=== PATIENT | female | born 1990 | race American Indian/Alaskan Native ===

== ENCOUNTER 2019-02-10 22:41 | Emergency (ER) | payer MEDICAID ==
[2019-02-10 22:56] VITALS: BP 139/85
--- NOTE | 2019-02-11 00:58 | Emergency Department Report ---
ED ENT HPI - General Chief complaint: Earache Stated complaint: LEFT EAR FACE PAIN Time Seen by Provider: 02/11/19 00:48 Source: patient Mode of arrival: Ambulatory Limitations: No Limitations - History of Present Illness Initial comments: 28-year-old old -Cong[place] female comes to the emergency room for left ear and face pain 1 week. Patient reports that the pain has been intermittent. She's been taking ibuprofen and Tylenol with not much resolution of pain. Patient denies any fever or chills. Patient reports a little trouble hearing from the left ear. He reports no past medical history currently takes no medications on a daily basis and has no known drug allergies. MD complaint: ear pain Onset/Timin -: week(s) Location: L ear Severity scale (0 -10): 7 Quality: aching, sharp Consistency: intermittent Improves with: none Worsens with: none - Related Data Previous Rx's Medication Instructions Recorded Last Taken Type Nitrofurantoin [place]/M-Cryst 100 mg PO Q12HR #14 capsule 07/19/16 Unknown Rx [Macrobid CAP] Acetaminophen/Codeine [Tylenol 1 tab PO Q6H PRN #12 tab 02/11/19 Unknown Rx /Codeine # 3 tab] Amoxicillin [Amoxicillin TAB] 875 mg PO BID #20 tablet 02/11/19 Unknown Rx Ibuprofen [Motrin 800 MG tab] 800 mg PO Q8HR PRN #30 tablet 02/11/19 Unknown Rx Allergies Allergy/AdvReac Type Severity Reaction Status Date / Time No Known Allergies Allergy Unverified 07/18/16 16:26 ED Dental HPI - General Chief complaint: Earache Stated complaint: LEFT EAR FACE PAIN Time Seen by Provider: 02/11/19 00:48 Source: patient Mode of arrival: Ambulatory Limitations: No Limitations - Related Data Previous Rx's Medication Instructions Recorded Last Taken Type Nitrofurantoin [place]/M-Cryst 100 mg PO Q12HR #14 capsule 07/19/16 Unknown Rx [Macrobid CAP] Acetaminophen/Codeine [Tylenol 1 tab PO Q6H PRN #12 tab 02/11/19 Unknown Rx /Codeine # 3 tab] Amoxicillin [Amoxicillin TAB] 875 mg PO BID #20 tablet 02/11/19 Unknown Rx Ibuprofen [Motrin 800 MG tab] 800 mg PO Q8HR PRN #30 tablet 06/01/19 Unknown Rx Allergies Allergy/AdvReac Type Severity Reaction Status Date / Time No Known Allergies Allergy Unverified 07/18/16 16:26 ED Review of Systems ROS: Stated complaint: LEFT EAR FACE PAIN Other details as noted in HPI ED Past Medical Hx - Surgical History Additional Surgical History: C section x2 - Social History Smoking Status: Never Smoker Substance Use Type: None - Medications Home Medications: Home Medications Medication Instructions Recorded Confirmed Last Taken Type Nitrofurantoin [place]/M-Cryst 100 mg PO Q12HR #14 capsule 07/19/16 Unknown Rx [Macrobid CAP] Acetaminophen/Codeine [Tylenol 1 tab PO Q6H PRN #12 tab 02/11/19 Unknown Rx /Codeine # 3 tab] Amoxicillin [Amoxicillin TAB] 875 mg PO BID #20 tablet 02/11/19 Unknown Rx Ibuprofen [Motrin 800 MG tab] 800 mg PO Q8HR PRN #30 tablet 02/11/19 Unknown Rx ED Physical Exam - General Limitations: No Limitations ED Course Vital Signs 02/10/19 22:54 Temperature 98.5 F Pulse Rate 110 H Respiratory 16 Rate Blood Pressure 139/85 O2 Sat by Pulse 99 Oximetry Critical care attestation.: If time is entered above; I have spent that time in minutes in the direct care of this critically ill patient, excluding procedure time. ED Disposition Clinical Impression: Toothache Otitis media Qualifiers: Otitis media type: unspecified Chronicity: acute Qualified Code(s): H66.90 - Otitis media, unspecified, unspecified ear Disposition: DC-01 TO HOME OR SELFCARE Is pt being admited?: No Does the pt Need Aspirin: No Condition: Stable Instructions: Otitis Media (ED), Toothache (ED) Additional Instructions: Please take antibiotics as prescribed pain medication as needed follow-up with the dentist and her primary care provider. Prescriptions: Amoxicillin [Amoxicillin TAB] 875 mg PO BID #20 tablet Ibuprofen [Motrin 800 MG tab] 800 mg PO Q8HR PRN #30 tablet PRN Reason: Pain , Severe (7-10) Acetaminophen/Codeine [Tylenol /Codeine # 3 tab] 1 tab PO Q6H PRN #12 tab PRN Reason: Pain , Severe (7-10) Referrals: ODIN CORRALES MD [Primary Care Provider] - 3-5 Days [facility] [Outside] - 3-5 Days [facility] [Outside] - 3-5 Days [facility] [Outside] - 3-5 Days Forms: Work/School Release Form(ED)
== END 2019-02-11 01:47 | disposition home or self-care (01) ==
LOC: ED 22:41
DX: H66.92 Otitis media, unspecified, left ear (principal); R51 Headache; K08.89 Other specified disorders of teeth and supporting structures

== ENCOUNTER 2019-04-06 00:40 | Emergency (ER) | payer MEDICAID ==
[2019-04-06 01:07] LABS: Basophils % (Auto) 0.3 % (0.0-1.8); Eosinophils # (Auto) 0.1 K/mm3 (0.0-0.4); Eosinophils % (Auto) 1.8 % (0.0-4.3); Hematocrit 37.5 % (30.3-42.9); Hemoglobin 12.2 gm/dl (10.1-14.3); Lymphocytes # (Auto) 1.8 K/mm3 (1.2-5.4); Lymphocytes % (Auto) 23.8 % (13.4-35.0); Mean Corpuscular HGB Conc 33 % (30-34); Mean Corpuscular Volume 79 fl (79-97); Monocytes # (Auto) 0.5 K/mm3 (0.0-0.8); Monocytes % (Auto) 7.1 % (0.0-7.3); Platelet Count 256 K/mm3 (140-440); Red Blood Count 4.73 M/mm3 (3.65-5.03); Red Cell Distribution Width 13.3 % (13.2-15.2)
[2019-04-06 01:23] LABS: Alanine Aminotransferase 15 units/L (7-56); Albumin 3.7 g/dL (3.9-5); BUN/Creatinine Ratio 13; Blood Urea Nitrogen 10 mg/dL (7-17); Calcium 9.2 mg/dL (8.4-10.2); Hemolysis Index 22
[2019-04-06 01:51] LABS: Bilirubin,Urine NEG (Negative); Blood,Urine NEG (Negative); Color,Urine Yellow (Yellow); Mucus,Urine FEW /HPF; Protein,Urine <15 mg/dL mg/dL (Negative)
[2019-04-06] MEDS ORDERED: PEPCID IV ONE (02:17)
[2019-04-06] MEDS ORDERED: NACL 0.9% 1000 ML 1,000 ML IV ONE (02:18)
[2019-04-06] MEDS ORDERED: XYLOCAINE TOPICAL 4% TP ONE (02:18)
[2019-04-06] MEDS ORDERED: REGLAN IV ONE (02:18)
[2019-04-06] MEDS ORDERED: CARAFATE PO ONE (02:18)
--- NOTE | 2019-04-06 02:20 | Emergency Department Report ---
ED General Adult HPI - General Chief complaint: Abdominal Pain Stated complaint: HEADACHE/LOWER BACK AND ABDOMINAL PAIN Time Seen by Provider: 04/06/19 01:29 Source: patient, RN notes reviewed, old records reviewed Mode of arrival: Ambulatory Limitations: No Limitations - History of Present Illness Initial comments: This is a pleasant 28-year-old female. Patient is not known to this provider previously. She does not have a local primary care doctor. She reports no chronic medical conditions. Surgical history includes 2, the last of which was in 2012. Patient presents with 2 main complaints. Her first complaint is headache. The headache is frontal and bitemporal. The headache is intermittent. The headache is throbbing. It does not radiate anywhere. The headache is not sudden or thunderclap in nature. The headache is not maximal in intensity at the onset. The headache is not the most intense headache of her life. There is no loss of vision, no claudication in the jaw, no extremity weakness or numbness, no ataxia, no fevers. Patient reports that she is looking at a computer screen all day at work, and she spends a lot of time on her side with phone. She also reports that she hasn't had her vision checked in a few years. There is no dental pain. Next complaint is epigastric abdominal pain. The pain is throbbing. It increases with palpation. It decreases with rest. It does not radiate anywhere. Both the headache and abdominal pain were improved with intranasal lidocaine, Carafate, and Pepcid. The patient denies lower abdominal pain at this time. She denies back pain to this provider. She denies chest pain and shortness of breath. After the aforementioned therapies, the patient was smiling in her room, laughing with her friend or significant other, and stated that she was ready to go. 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 -: Gradual Location: head, abdomen Radiation: non-radiation Quality: aching Consistency: other Improves with: other Worsens with: other - Related Data Previous Rx's Medication Instructions Recorded Last Taken Type Nitrofurantoin [place]/M-Cryst 100 mg PO Q12HR #14 capsule 07/19/16 Unknown Rx [Macrobid CAP] Acetaminophen/Codeine [Tylenol 1 tab PO Q6H PRN #12 tab 02/11/19 Unknown Rx /Codeine # 3 tab] Amoxicillin [Amoxicillin TAB] 875 mg PO BID #20 tablet 02/11/19 Unknown Rx Ibuprofen [Motrin 800 MG tab] 800 mg PO Q8HR PRN #30 tablet 02/11/19 Unknown Rx Acetaminophen [Non-Aspirin Extra 500 mg PO Q6HR PRN #30 tablet 04/06/19 Unknown Rx Strength] Famotidine [Pepcid] 20 mg PO BID #30 tablet 04/06/19 Unknown Rx Metoclopramide [Reglan] 10 mg PO QID PRN #30 tablet 04/06/19 Unknown Rx Allergies Allergy/AdvReac Type Severity Reaction Status Date / Time No Known Allergies Allergy Unverified 07/18/16 16:26 ED Review of Systems ROS: Stated complaint: HEADACHE/LOWER BACK AND ABDOMINAL PAIN Other details as noted in HPI Constitutional: denies: fever Eyes: denies: eye discharge ENT: denies: epistaxis Respiratory: denies: cough Cardiovascular: denies: chest pain Genitourinary: denies: dysuria Musculoskeletal: denies: back pain Skin: denies: lesions Neurological: headache. denies: weakness, numbness, paresthesias, confusion, abnormal gait, vertigo ED Past Medical Hx - Past Medical History Previous Medical History?: No - Surgical History Past Surgical History?: Yes Additional Surgical History: C section x2 - Social History Smoking Status: Never Smoker - Medications Home Medications: Home Medications Medication Instructions Recorded Confirmed Last Taken Type Nitrofurantoin [place]/M-Cryst 100 mg PO Q12HR #14 capsule 07/19/16 Unknown Rx [Macrobid CAP] Acetaminophen/Codeine [Tylenol 1 tab PO Q6H PRN #12 tab 02/11/19 Unknown Rx /Codeine # 3 tab] Amoxicillin [Amoxicillin TAB] 875 mg PO BID #20 tablet 02/11/19 Unknown Rx Ibuprofen [Motrin 800 MG tab] 800 mg PO Q8HR PRN #30 tablet 02/11/19 Unknown Rx Acetaminophen [Non-Aspirin Extra 500 mg PO Q6HR PRN #30 tablet 04/06/19 Unknown Rx Strength] Famotidine [Pepcid] 20 mg PO BID #30 tablet 04/06/19 Unknown Rx Metoclopramide [Reglan] 10 mg PO QID PRN #30 tablet 04/06/19 Unknown Rx ED Physical Exam - General Limitations: No Limitations General appearance: alert, in no apparent distress - Head Head exam: Present: atraumatic, normocephalic - Eye Eye exam: Present: normal appearance, PERRL, EOMI, other (visual acuity intact to finger counting, color perception, reading at a close distance). Absent: nystagmus - ENT ENT exam: Present: normal exam, normal orophraynx, mucous membranes moist, normal external ear exam - Neck Neck exam: Present: normal inspection, full ROM. Absent: tenderness, meningi smus - Respiratory Respiratory exam: Present: normal lung sounds bilaterally. Absent: respiratory distress - Cardiovascular Cardiovascular Exam: Present: regular rate, normal rhythm, normal heart sounds. Absent: bradycardia, tachycardia, irregular rhythm, systolic murmur, diastolic murmur, rubs, gallop - GI/Abdominal GI/Abdominal exam: Present: soft, tenderness (there is minimal epigastric tenderness to deep palpation. There is no right upper quadrant tenderness. There is negative Pichardo sign. There is no right lower quadrant tenderness. There is a negative Rovsing sign.). Absent: distended, guarding, rebound, rigid, pulsatile mass - Extremities Exam Extremities exam: Present: normal inspection, full ROM, other (2+ pulses noted in the bilateral upper, lower extremities. Compartments soft. No long bony tenderness. The pelvis is stable.). Absent: pedal edema, joint swelling, calf tenderness - Back Exam Back exam: Present: normal inspection, full ROM. Absent: tenderness, CVA tender ness (R), CVA tenderness (L), paraspinal tenderness, vertebral tenderness - Neurological Exam Neurological exam: Present: alert, oriented X3, normal gait, other (Extraocular movements intact. Tongue midline. No facial droop. Facial sensation intact to light touch in the V1, V2, V3 distribution bilaterally. 5 and 5 strength in 4 extremities.. Sensation is intact to light touch in 4 extremities.). Absent: motor sensory deficit - Psychiatric Psychiatric exam: Present: normal affect, normal mood - Skin Skin exam: Present: warm, dry, intact, normal color. Absent: rash ED Course Vital Signs 04/06/19 04/06/19 04/06/19 00:41 01:49 03:25 Temperature 98.7 F 97.5 F L Pulse Rate 88 78 Respiratory 18 18 18 Rate Blood Pressure 125/79 Blood Pressure 156/96 [Right] O2 Sat by Pulse 100 100 98 Oximetry ED Medical Decision Making - Lab Data Result diagrams: 04/06/19 00:46 04/06/19 00:46 Vital Signs 04/06/19 04/06/19 00:41 01:49 Temperature 98.7 F Pulse Rate 88 Respiratory 18 18 Rate Blood Pressure 125/79 O2 Sat by Pulse 100 100 Oximetry Lab Results 04/06/19 04/06/19 04/06/19 Range/Units 00:46 00:46 02:13 WBC 7.7 (4.5-11.0) K/mm3 RBC 4.73 (3.65-5.03) M/mm3 Hgb 12.2 (10.1-14.3) gm/dl Hct 37.5 (30.3-42.9) % MCV 79 (79-97) fl MCH 26 L (28-32) pg MCHC 33 (30-34) % RDW 13.3 (13.2-15.2) % Plt Count 256 (140-440) K/mm3 Lymph % (Auto) 23.8 (13.4-35.0) % [place] % (Auto) 7.1 (0.0-7.3) % Eos % (Auto) 1.8 (0.0-4.3) % Baso % (Auto) 0.3 (0.0-1.8) % Lymph # 1.8 (1.2-5.4) K/mm3 [place] # 0.5 (0.0-0.8) K/mm3 Eos # 0.1 (0.0-0.4) K/mm3 Baso # 0.0 (0.0-0.1) K/mm3 Seg Neutrophils % 67.0 (40.0-70.0) % Seg Neutrophils # 5.1 (1.8-7.7) K/mm3 Sodium 139 (137-145) mmol/L Potassium 4.2 (3.6-5.0) mmol/L Chloride 103.2 (98-107) mmol/L Carbon Dioxide 28 (22-30) mmol/L Anion Gap 12 mmol/L BUN 10 (7-17) mg/dL Creatinine 0.8 (0.7-1.2) mg/dL Estimated GFR > 60 ml/min BUN/Creatinine Ratio 13 % Glucose 88 (65-100) mg/dL Calcium 9.2 (8.4-10.2) mg/dL Total Bilirubin 0.20 (0.1-1.2) mg/dL AST 15 (5-40) units/L ALT 15 (7-56) units/L Alkaline Phosphatase 107 (35-129) units/L Total Protein 7.6 (6.3-8.2) g/dL Albumin 3.7 L (3.9-5) g/dL Albumin/Globulin Ratio 0.9 % Lipase 16 (13-60) units/L HCG, Quant < 2 (0-4) mIU/mL Urine Color (Yellow) Urine Turbidity (Clear) Urine pH (5.0-7.0) Ur Specific [place] (1.003-1.030) Urine Protein (Negative) mg/dL Urine Glucose (UA) (Negative) mg/dL Urine Ketones (Negative) mg/dL Urine Blood (Negative) Urine Nitrite (Negative) Urine Bilirubin (Negative) Urine Urobilinogen (<2.0) mg/dL Ur Leukocyte Esterase (Negative) Urine WBC (Auto) (0.0-6.0) /HPF Urine RBC (Auto) (0.0-6.0) /HPF U Epithel Cells (Auto) (0-13.0) /HPF Urine Mucus /HPF 04/06/ Range/Units Unknown WBC (4.5-11.0) K/mm3 RBC (3.65-5.03) M/mm3 Hgb (10.1-14.3) gm/dl Hct (30.3-42.9) % MCV (79-97) fl MCH (28-32) pg MCHC (30-34) % RDW (13.2-15.2) % Plt Count (140-440) K/mm3 Lymph % (Auto) (13.4-35.0) % [place] % (Auto) (0.0-7.3) % Eos % (Auto) (0.0-4.3) % Baso % (Auto) (0.0-1.8) % Lymph # (1.2-5.4) K/mm3 [place] # (0.0-0.8) K/mm3 Eos # (0.0-0.4) K/mm3 Baso # (0.0-0.1) K/mm3 Seg Neutrophils % (40.0-70.0) % Seg Neutrophils # (1.8-7.7) K/mm3 Sodium (137-145) mmol/L Potassium (3.6-5.0) mmol/L Chloride (98-107) mmol/L Carbon Dioxide (22-30) mmol/L Anion Gap mmol/L BUN (7-17) mg/dL Creatinine (0.7-1.2) mg/dL Estimated GFR ml/min BUN/Creatinine Ratio % Glucose (65-100) mg/dL Calcium (8.4-10.2) mg/dL Total Bilirubin (0.1-1.2) mg/dL AST (5-40) units/L ALT (7-56) units/L Alkaline Phosphatase (35-129) units/L Total Protein (6.3-8.2) g/dL Albumin (3.9-5) g/dL Albumin/Globulin Ratio % Lipase (13-60) units/L HCG, Quant (0-4) mIU/mL Urine Color Yellow (Yellow) Urine Turbidity Clear (Clear) Urine pH 6.0 (5.0-7.0) Ur Specific [place] 1.019 (1.003-1.030) Urine Protein <15 mg/dl (Negative) mg/dL Urine Glucose (UA) Neg (Negative) mg/dL Urine Ketones Neg (Negative) mg/dL Urine Blood Neg (Negative) Urine Nitrite Neg (Negative) Urine Bilirubin Neg (Negative) Urine Urobilinogen 2.0 (<2.0) mg/dL Ur Leukocyte Esterase Neg (Negative) Urine WBC (Auto) 1.0 (0.0-6.0) /HPF Urine RBC (Auto) 1.0 (0.0-6.0) /HPF U Epithel Cells (Auto) 1.0 (0-13.0) /HPF Urine Mucus Few /HPF - EKG Data -: EKG Interpreted by [place] EKG shows normal: sinus rhythm Rate: normal - EKG Data When compared to previous EKG there are: previous EKG unavailable EKG shows sinus bradycardia, 59 bpm, left axis deviation, low voltage in the anteroseptal leads, poor R-wave progression, T-wave inversion in lead 3, the EKG is abnormal, the EKG is not consistent with ST elevation myocardial infarction. 04/06/19 03:22 Differential diagnosis, including but not limited to: - Medical Decision Making Differential diagnosis, including but not limited to: Migraine headache, tension headache, cluster headache, headache secondary to excessive cell phone, computer use, GERD, gastritis, hiatal hernia Assessment and plan: 28-year-old female with 2 complaints Headache clinically appears to be benign headache and today. Patient is afebrile with reassuring vital signs and feels improved. Does not offer any red flag historical aspects to suggest infectious etiology, or intracranial hemorrhage or mass. She has a GCS of 15, and walks with a steady gait. She has an NIH score of 0. Does not require advanced neuro imaging at this time. Abdominal pain is benign, not significantly tender, pain markedly improved. Patient smiling and laughing in her room, does not appear to be in any acute distress. She can follow up with an outpatient primary care doctor. She is counseled to minimize computer utilization and cell phone utilization, she is counseled to have her vision checked as an outpatient. We discussed diet and lifestyle modifications. Critical care attestation.: If time is entered above; I have spent that time in minutes in the direct care of this critically ill patient, excluding procedure time. ED Disposition Clinical Impression: Frontal headache, Epigastric abdominal pain Disposition: DC-01 TO HOME OR SELFCARE Is pt being admited?: No Does the pt Need Aspirin: No Condition: Stable Instructions: Abdominal Pain (ED) Additional Instructions: Avoid consumption of Motrin, ibuprofen, Naprosyn, Aleve, heavy, spicy foods. Consume fruits, fiber, vegetables, lean protein. Consume 4-6 cups of water per day. Follow-up with a primary care doctor within the next month. EKG today demonstrated nonspecific abnormalities. This should be followed up by a primary care doctor within the recommended timeframe. Take the pain medica tion/headache medication as needed/directed. Return to the emergency room right away with new, worsened or different symptoms not present on the initial emergency room evaluation. Prescriptions: Acetaminophen [Non-Aspirin Extra Strength] 500 mg PO Q6HR PRN #30 tablet PRN Reason: Pain , Severe (7-10) Famotidine [Pepcid] 20 mg PO BID #30 tablet Metoclopramide [Reglan] 10 mg PO QID PRN #30 tablet PRN Reason: Headache Referrals: ODIN CORRALES MD [Primary Care Provider] - 3-5 Days
[2019-04-06 03:25] VITALS: BP 156/96
== END 2019-04-06 03:47 | disposition home or self-care (01) ==
LOC: ED 00:40
DX: R51 Headache (principal); R10.13 Epigastric pain; Z79.899 Other long term (current) drug therapy
CPT/HCPCS: 36415; 80053; 81001; 83690; 84702; 85025; 93005; 93010; 96374; 96375; 99284; J2765; J7030

== ENCOUNTER 2019-09-22 06:53 | Emergency (ER) | payer MEDICAID ==
[2019-09-22] MEDS ORDERED: IBUPROFEN 800 MG TAB PO ONE (07:39)
--- NOTE | 2019-09-22 07:42 | Emergency Department Report ---
<BARBARA MCCORMICK RADHA - Last Filed: 09/22/19 09:01> ED ENT HPI - General Chief complaint: Sore Throat Stated complaint: HEADACHE SORE THROAT DIZZY Time Seen by Provider: 09/22/19 07:28 Source: patient Mode of arrival: Ambulatory Limitations: No Limitations - History of Present Illness Initial comments: This is a 28-year-old -[place] female who presents to the emergency room with sore throat for 1 day. Patient also reports associated symptoms of chills and headache. She reports discomfort with swallowing and states it feels like knives going down her throat. She denies cough, rhinorrhea, myalgia, nausea, vomiting, or weakness. MD complaint: sore throat Onset/Timin -: days(s) Location: throat Severity: severe Severity scale (0 -10): 10 Quality: aching Consistency: constant Improves with: none Worsens with: swallowing, eating Associated Symptoms: fever, pain with swallowing, sore throat. denies: cough, gum swelling, tinnitus, hearing loss, discharge from ear, rhinorrhea - Related Data Previous Rx's Medication Instructions Recorded Last Taken Type Nitrofurantoin [place]/M-Cryst 100 mg PO Q12HR #14 capsule 07/19/16 Unknown Rx [Macrobid CAP] Acetaminophen/Codeine [Tylenol 1 tab PO Q6H PRN #12 tab 02/11/19 Unknown Rx /Codeine # 3 tab] Amoxicillin [Amoxicillin TAB] 875 mg PO BID #20 tablet 02/11/19 Unknown Rx Acetaminophen [Non-Aspirin Extra 500 mg PO Q6HR PRN #30 tablet 04/06/19 Unknown Rx Strength] Famotidine [Pepcid] 20 mg PO BID #30 tablet 04/06/19 Unknown Rx Metoclopramide [Reglan] 10 mg PO QID PRN #30 tablet 04/06/19 Unknown Rx Ibuprofen [Motrin 800 MG tab] 800 mg PO Q8HR PRN #30 tablet 09/22/19 Unknown Rx Prednisone [predniSONE 5 mg (6-Day 5 mg PO .TAPER #1 tab.ds.pk 09/22/19 Unknown Rx Pack, 21 Tabs)] Allergies Allergy/AdvReac Type Severity Reaction Status Date / Time No Known Allergies Allergy Unverified 07/18/16 16:26 ED Dental HPI - General Chief complaint: Sore Throat Stated complaint: HEADACHE SORE THROAT DIZZY Time Seen by Provider: 09/22/19 07:28 Source: patient Mode of arrival: Ambulatory Limitations: No Limitations - Related Data Previous Rx's Medication Instructions Recorded Last Taken Type Nitrofurantoin [place]/M-Cryst 100 mg PO Q12HR #14 capsule 07/19/16 Unknown Rx [Macrobid CAP] Acetaminophen/Codeine [Tylenol 1 tab PO Q6H PRN #12 tab 02/11/19 Unknown Rx /Codeine # 3 tab] Amoxicillin [Amoxicillin TAB] 875 mg PO BID #20 tablet 02/11/19 Unknown Rx Acetaminophen [Non-Aspirin Extra 500 mg PO Q6HR PRN #30 tablet 04/06/19 Unknown Rx Strength] Famotidine [Pepcid] 20 mg PO BID #30 tablet 04/06/19 Unknown Rx Metoclopramide [Reglan] 10 mg PO QID PRN #30 tablet 04/06/19 Unknown Rx Ibuprofen [Motrin 800 MG tab] 800 mg PO Q8HR PRN #30 tablet 09/22/19 Unknown Rx Prednisone [predniSONE 5 mg (6-Day 5 mg PO .TAPER #1 tab.ds.pk 09/22/19 Unknown Rx Pack, 21 Tabs)] Allergies Allergy/AdvReac Type Severity Reaction Status Date / Time No Known Allergies Allergy Unverified 07/18/16 16:26 ED Review of Systems Constitutional: denies: chills, fever ENT: throat pain. denies: ear pain Respiratory: denies: cough, shortness of breath, wheezing Cardiovascular: denies: chest pain, palpitations Gastrointestinal: denies: abdominal pain, nausea, diarrhea Musculoskeletal: denies: back pain, joint swelling, arthralgia Skin: denies: rash, lesions Neurological: denies: headache, weakness, paresthesias Psychiatric: denies: anxiety, depression ED Past Medical Hx - Past Medical History Previous Medical History?: No - Surgical History Past Surgical History?: Yes Additional Surgical History: C section x2 - Social History Smoking Status: Never Smoker Substance Use Type: None - Medications Home Medications: Home Medications Medication Instructions Recorded Confirmed Last Taken Type Nitrofurantoin [place]/M-Cryst 100 mg PO Q12HR #14 capsule 07/19/16 Unknown Rx [Macrobid CAP] Acetaminophen/Codeine [Tylenol 1 tab PO Q6H PRN #12 tab 02/11/19 Unknown Rx /Codeine # 3 tab] Amoxicillin [Amoxicillin TAB] 875 mg PO BID #20 tablet 02/11/19 Unknown Rx Acetaminophen [Non-Aspirin Extra 500 mg PO Q6HR PRN #30 tablet 04/06/19 Unknown Rx Strength] Famotidine [Pepcid] 20 mg PO BID #30 tablet 04/06/19 Unknown Rx Metoclopramide [Reglan] 10 mg PO QID PRN #30 tablet 04/06/19 Unknown Rx Ibuprofen [Motrin 800 MG tab] 800 mg PO Q8HR PRN #30 tablet 09/22/19 Unknown Rx Prednisone [predniSONE 5 mg (6-Day 5 mg PO .TAPER #1 tab.ds.pk 09/22/19 Unknown Rx Pack, 21 Tabs)] ED Physical Exam - General Limitations: No Limitations General appearance: alert, in no apparent distress, obese (morbidly) - ENT ENT exam: Present: mucous membranes moist. Absent: normal orophraynx (erythematous and enlarged tonsils with exudate, uvula midline), TM's normal bilaterally, normal external ear exam - Neck Neck exam: Present: lymphadenopathy (enlarged anterior cervical lymph nodes, mobile, TTP). Absent: full ROM - Respiratory Respiratory exam: Present: normal lung sounds bilaterally. Absent: respiratory distress - Cardiovascular Cardiovascular Exam: Present: regular rate, normal rhythm. Absent: systolic murmur, diastolic murmur, rubs, gallop - GI/Abdominal GI/Abdominal exam: Present: soft, normal bowel sounds - Neurological Exam Neurological exam: Present: alert, oriented X3 - Psychiatric Psychiatric exam: Present: normal affect, normal mood - Skin Skin exam: Present: warm, dry, intact, normal color. Absent: rash ED Medical Decision Making - Lab Data Lab Results 09/22/19 Range/Units Unknown Group A Strep Rapid Negative (Negative) - Medical Decision Making Patient examined by me and stable. No distress noted. Although rapid strep was negative there is enlargement of tonsils with exudate. Centor score for strep throat 4 points which is a 50% chance of strep pharyngitis. Patient will be treated with antibiotics. Vitals stable. Given bicillin I-A 1.2 mL IM once in ER. Start steroids. Take Tylenol or ibuprofen for pain. Discussed plan with patient and she agreed with plan to treat outpatient. Discharged home. Return to work tomorrow. Follow up with PCP in 48-72 hours. ED Disposition Clinical Impression: Strep pharyngitis Disposition: DC-01 TO HOME OR SELFCARE Is pt being admited?: No Condition: Stable Instructions: Strep Throat (ED) Additional Instructions: Expect symptoms to improve within 3 or 4 days. There is no need for bed rest or isolation. Use Tylenol or ibuprofen for symptoms of sore throat, headache, and fever. Return to work in 24 hours of taking antibiotics. Follow up with Primary Care Provider in 48-72 hours. Prescriptions: Ibuprofen [Motrin 800 MG tab] 800 mg PO Q8HR PRN #30 tablet PRN Reason: Pain , Severe (7-10) Prednisone [predniSONE 5 mg (6-Day Pack, 21 Tabs)] 5 mg PO .TAPER #1 tab.ds.pk Referrals: [facility] [Outside] - 3-5 Days [facility] [Outside] - 3-5 Days [facility] [Outside] - 3-5 Days Forms: Work/School Release Form(ED) Time of Disposition: 08:29 <LATANYA RANDALL P - Last Filed: 09/23/19 15:02> ED Review of Systems ROS: Stated complaint: HEADACHE SORE THROAT DIZZY Other details as noted in HPI ED Course Vital Signs 09/22/19 09/22/19 06:57 08:57 Temperature 100.4 F H 99.2 F Pulse Rate 111 H 100 H Respiratory 18 16 Rate Blood Pressure 141/89 Blood Pressure 136/84 [Right] O2 Sat by Pulse 97 98 Oximetry ED Medical Decision Making - Medical Decision Making Attestation: Available for consultation Critical care attestation.: If time is entered above; I have spent that time in minutes in the direct care of this critically ill patient, excluding procedure time. ED Disposition Is pt being admited?: No
[2019-09-22] MEDS ORDERED: PENICILLIN G BENZATHINE 1.2 MILLION UNIT/2 ML INJ IM ONE (08:33)
[2019-09-22 08:58] VITALS: BP 136/84
== END 2019-09-22 09:09 | disposition home or self-care (01) ==
LOC: ED 06:53
DX: J02.0 Streptococcal pharyngitis (principal); E66.01 Morbid (severe) obesity due to excess calories; Z79.899 Other long term (current) drug therapy; Z98.890 Other specified postprocedural states; Z68.41 Body mass index [BMI] 40.0-44.9, adult
CPT/HCPCS: 87116; 87430; 96372; 99283; J0561

== ENCOUNTER 2020-01-09 21:33 | Emergency (ER) | payer MEDICAID ==
--- NOTE | 2020-01-09 21:41 | Event Note ---
ED Screening Note ED Screening Note: mis2 home preg pos here with n/v "cant keep nothing down" no vomiting in triage has obgyn first appnt set up no vag bleed or dc This initial assessment/diagnostic orders/clinical plan/treatment(s) is/are subject to change based on patients health status, clinical progression and re- assessment by fellow clinical providers in the ED. Further treatment and workup at subsequent clinical providers discretion. Patient/guardian urged not to elope from the ED as their condition may be serious if not clinically assessed and managed. Initial orders include: ua basic labs hcg zofran/hydration
[2020-01-09] MEDS ORDERED: ONDANSETRON 4 MG ODT TAB PO ONE (21:42)
[2020-01-09 22:00] LABS: Basophils # (Auto) 0.2 K/mm3 (0.0-0.1); Basophils % (Auto) 2.1 % (0.0-1.8); Eosinophils # (Auto) 0.2 K/mm3 (0.0-0.4); Eosinophils % (Auto) 1.9 % (0.0-4.3); Hemoglobin 13.5 gm/dl (10.1-14.3); Lymphocytes # (Auto) 1.8 K/mm3 (1.2-5.4); Lymphocytes % (Auto) 19.6 % (13.4-35.0); Mean Corpuscular HGB Conc 35 % (30-34); Mean Corpuscular Volume 78 fl (79-97); Monocytes # (Auto) 0.7 K/mm3 (0.0-0.8); Monocytes % (Auto) 7.3 % (0.0-7.3); Platelet Count 284 K/mm3 (140-440); Red Blood Count 4.98 M/mm3 (3.65-5.03)
[2020-01-09 22:08] LABS: Bacteria,Urine 2+ /HPF (Negative); Bilirubin,Urine NEG (Negative); Blood,Urine SM (Negative); Color,Urine Amber (Yellow); Hyaline Casts,Urine 2 /LPF; Mucus,Urine 3+ /HPF
[2020-01-09 22:17] LABS: Alanine Aminotransferase 13 units/L (7-56); Albumin 4.1 g/dL (3.9-5); BUN/Creatinine Ratio 14; Blood Urea Nitrogen 11 mg/dL (7-17); Calcium 10.9 mg/dL (8.4-10.2); Hemolysis Index 11
[2020-01-09] MEDS ORDERED: diphenhydrAMINE 50 MG/ML VIAL IV STA (22:30)
[2020-01-09] MEDS ORDERED: SODIUM CHLORIDE 0.9% 1000 ML 1,000 ML IV ONE (22:30)
[2020-01-09] MEDS ORDERED: METOCLOPRAMIDE 10 MG/2 ML INJ IV STA (22:30)
--- NOTE | 2020-01-09 22:56 | Emergency Department Report ---
ED Female HPI - General Chief complaint: Abdominal Pain Stated complaint: VOMITING,ABD PAIN Time Seen by Provider: 01/09/20 21:39 Source: patient Mode of arrival: Ambulatory Limitations: No Limitations - History of Present Illness MD Complaint: dysuria, pelvic pain -: Gradual, days(s) (3) Radiation: suprapubic Quality: cramping, dull Consistency: constant Worsens with: none Are you Now?: Yes Associated Symptoms: denies: nausea/vomiting, fever/chills, loss of appetite, dysuria, syncope, weakness - Related Data Previous Rx's Medication Instructions Recorded Last Taken Type Nitrofurantoin [place]/M-Cryst 100 mg PO Q12HR #14 capsule 07/19/16 Unknown Rx [Macrobid CAP] Acetaminophen/Codeine [Tylenol 1 tab PO Q6H PRN #12 tab 02/11/19 Unknown Rx /Codeine # 3 tab] Amoxicillin [Amoxicillin TAB] 875 mg PO BID #20 tablet 02/11/19 Unknown Rx Acetaminophen [Non-Aspirin Extra 500 mg PO Q6HR PRN #30 tablet 04/06/19 Unknown Rx Strength] Famotidine [Pepcid] 20 mg PO BID #30 tablet 04/06/19 Unknown Rx Metoclopramide [Reglan] 10 mg PO QID PRN #30 tablet 04/06/19 Unknown Rx Ibuprofen [Motrin 800 MG tab] 800 mg PO Q8HR PRN #30 tablet 09/22/19 Unknown Rx Prednisone [predniSONE 5 mg (6-Day 5 mg PO .TAPER #1 tab.ds.pk 09/22/19 Unknown Rx Pack, 21 Tabs)] Doxylamine Succinate/Vit B6 1 each PO BID #20 tablet. 01/10/20 Unknown Rx [Otilia Laureano 10-10 mg Tablet] Nitrofurantoin [place]/M-Cryst 100 mg PO Q12HR #14 capsule 01/10/20 Unknown Rx [Macrobid CAP] Allergies Allergy/AdvReac Type Severity Reaction Status Date / Time No Known Allergies Allergy Unverified 07/18/16 16:26 ED Review of Systems ROS: Stated complaint: VOMITING,ABD PAIN Other details as noted in HPI Comment: All other systems reviewed and negative ED Past Medical Hx - Past Medical History Previous Medical History?: No - Surgical History Past Surgical History?: No Additional Surgical History: C section x2 - Social History Smoking Status: Never Smoker - Medications Home Medications: Home Medications Medication Instructions Recorded Confirmed Last Taken Type Nitrofurantoin [place]/M-Cryst 100 mg PO Q12HR #14 capsule 07/19/16 Unknown Rx [Macrobid CAP] Acetaminophen/Codeine [Tylenol 1 tab PO Q6H PRN #12 tab 02/11/19 Unknown Rx /Codeine # 3 tab] Amoxicillin [Amoxicillin TAB] 875 mg PO BID #20 tablet 02/11/19 Unknown Rx Acetaminophen [Non-Aspirin Extra 500 mg PO Q6HR PRN #30 tablet 04/06/19 Unknown Rx Strength] Famotidine [Pepcid] 20 mg PO BID #30 tablet 04/06/19 Unknown Rx Metoclopramide [Reglan] 10 mg PO QID PRN #30 tablet 04/06/19 Unknown Rx Ibuprofen [Motrin 800 MG tab] 800 mg PO Q8HR PRN #30 tablet 09/22/19 Unknown Rx Prednisone [predniSONE 5 mg (6-Day 5 mg PO .TAPER #1 tab.ds.pk 09/22/19 Unknown Rx Pack, 21 Tabs)] Doxylamine Succinate/Vit B6 1 each PO BID #20 tablet. 01/10/20 Unknown Rx [Diclegis Dr 10-10 mg Tablet] Nitrofurantoin [place]/M-Cryst 100 mg PO Q12HR #14 capsule 01/10/20 Unknown Rx [Macrobid CAP] ED Physical Exam - General Limitations: No Limitations General appearance: alert, in no apparent distress - Head Head exam: Present: atraumatic, normocephalic - Eye Eye exam: Present: normal appearance - ENT ENT exam: Present: mucous membranes moist - Neck Neck exam: Present: normal inspection - Respiratory Respiratory exam: Present: normal lung sounds bilaterally. Absent: respiratory distress - Cardiovascular Cardiovascular Exam: Present: regular rate, normal rhythm. Absent: systolic murmur, diastolic murmur, rubs, gallop - GI/Abdominal GI/Abdominal exam: Present: soft, tenderness (Some mild tenderness to the suprapubic area no CVA tenderness noted), normal bowel sounds, other (Pendulous abdomen) - Extremities Exam Extremities exam: Present: normal inspection - Back Exam Back exam: Present: normal inspection - Neurological Exam Neurological exam: Present: alert, oriented X3 - Psychiatric Psychiatric exam: Present: normal affect, normal mood - Skin Skin exam: Present: warm, dry, intact, normal color. Absent: rash ED Course Vital Signs 01/09/20 01/10/20 21:37 00:16 Temperature 99.0 F 98 F Pulse Rate 78 82 Respiratory 18 16 Rate Blood Pressure 126/91 Blood Pressure 130/70 [Right] O2 Sat by Pulse 100 100 Oximetry ED Medical Decision Making - Lab Data Result diagrams: 01/09/20 21:43 01/09/20 21:43 Lab Results 01/09/20 01/09/20 01/09/20 Range/Units 21:43 21:43 21:43 WBC 9.4 (4.5-11.0) K/mm3 RBC 4.98 (3.65-5.03) M/mm3 Hgb 13.5 (10.1-14.3) gm/dl Hct 39.0 (30.3-42.9) % MCV 78 L (79-97) fl MCH 27 L (28-32) pg MCHC 35 H (30-34) % RDW 14.0 (13.2-15.2) % Plt Count 284 (140-440) K/mm3 Lymph % (Auto) 19.6 (13.4-35.0) % [place] % (Auto) 7.3 (0.0-7.3) % Eos % (Auto) 1.9 (0.0-4.3) % Baso % (Auto) 2.1 H (0.0-1.8) % Lymph # 1.8 (1.2-5.4) K/mm3 [place] # 0.7 (0.0-0.8) K/mm3 Eos # 0.2 (0.0-0.4) K/mm3 Baso # 0.2 H (0.0-0.1) K/mm3 Seg Neutrophils % 69.1 (40.0-70.0) % Seg Neutrophils # 6.5 (1.8-7.7) K/mm3 Sodium 134 L (137-145) mmol/L Potassium 3.6 (3.6-5.0) mmol/L Chloride 98.0 (98-107) mmol/L Carbon Dioxide 25 (22-30) mmol/L Anion Gap 15 mmol/L BUN 11 (7-17) mg/dL Creatinine 0.8 (0.7-1.2) mg/dL Estimated GFR > 60 ml/min BUN/Creatinine Ratio 14 % Glucose 92 (65-100) mg/dL Calcium 10.9 H (8.4-10.2) mg/dL Total Bilirubin 0.40 (0.1-1.2) mg/dL AST 15 (5-40) units/L ALT 13 (7-56) units/L Alkaline Phosphatase 85 (35-129) units/L Total Protein 8.2 (6.3-8.2) g/dL Albumin 4.1 (3.9-5) g/dL Albumin/Globulin Ratio 1.0 % Lipase 15 (13-60) units/L HCG, Quant 61271 H (0-4) mIU/mL Urine Color (Yellow) Urine Turbidity (Clear) Urine pH (5.0-7.0) Ur Specific [place] (1.003-1.030) Urine Protein (Negative) mg/dL Urine Glucose (UA) (Negative) mg/dL Urine Ketones (Negative) mg/dL Urine Blood (Negative) Urine Nitrite (Negative) Urine Bilirubin (Negative) Urine Urobilinogen (<2.0) mg/dL Ur Leukocyte Esterase (Negative) Urine WBC (Auto) (0.0-6.0) /HPF Urine RBC (Auto) (0.0-6.0) /HPF U Epithel Cells (Auto) (0-13.0) /HPF Urine Bacteria (Auto) (Negative) /HPF Hyaline Casts /LPF Urine Mucus /HPF Urine Yeast (Budding) /HPF 01/09/20 Range/Units Unknown WBC (4.5-11.0) K/mm3 RBC (3.65-5.03) M/mm3 Hgb (10.1-14.3) gm/dl Hct (30.3-42.9) % MCV (79-97) fl MCH (28-32) pg MCHC (30-34) % RDW (13.2-15.2) % Plt Count (140-440) K/mm3 Lymph % (Auto) (13.4-35.0) % [place] % (Auto) (0.0-7.3) % Eos % (Auto) (0.0-4.3) % Baso % (Auto) (0.0-1.8) % Lymph # (1.2-5.4) K/mm3 [place] # (0.0-0.8) K/mm3 Eos # (0.0-0.4) K/mm3 Baso # (0.0-0.1) K/mm3 Seg Neutrophils % (40.0-70.0) % Seg Neutrophils # (1.8-7.7) K/mm3 Sodium (137-145) mmol/L Potassium (3.6-5.0) mmol/L Chloride (98-107) mmol/L Carbon Dioxide (22-30) mmol/L Anion Gap mmol/L BUN (7-17) mg/dL Creatinine (0.7-1.2) mg/dL Estimated GFR ml/min BUN/Creatinine Ratio % Glucose (65-100) mg/dL Calcium (8.4-10.2) mg/dL Total Bilirubin (0.1-1.2) mg/dL AST (5-40) units/L ALT (7-56) units/L Alkaline Phosphatase (35-129) units/L Total Protein (6.3-8.2) g/dL Albumin (3.9-5) g/dL Albumin/Globulin Ratio % Lipase (13-60) units/L HCG, Quant (0-4) mIU/mL Urine Color [place] (Yellow) Urine Turbidity Cloudy (Clear) Urine pH 5.0 (5.0-7.0) Ur Specific [place] 1.030 (1.003-1.030) Urine Protein 30 mg/dl (Negative) mg/dL Urine Glucose (UA) Neg (Negative) mg/dL Urine Ketones Neg (Negative) mg/dL Urine Blood Sm (Negative) Urine Nitrite Neg (Negative) Urine Bilirubin Neg (Negative) Urine Urobilinogen 2.0 (<2.0) mg/dL Ur Leukocyte Esterase Lg (Negative) Urine WBC (Auto) 43.0 H (0.0-6.0) /HPF Urine RBC (Auto) 71.0 (0.0-6.0) /HPF U Epithel Cells (Auto) 23.0 H (0-13.0) /HPF Urine Bacteria (Auto) 2+ (Negative) /HPF Hyaline Casts 2 /LPF Urine Mucus 3+ /HPF Urine Yeast (Budding) 1+ /HPF - Radiology Data Radiology results: report reviewed Referring Physician:DEB MCDANIELPatient Name:BALDEV GRAHAMPatient ID:[id number] of :[id number]:FemaleAccession:[id number] Date:[id number] Status:Finalized Findings [facility] [address] [place] [address] Ultrasound Report Signed Patient: BALDEV GRAHAM MR#: [id number] : 1990 Acct:[id number] Age/Sex: 29 / F ADM Date: 01/09/20 Loc: ED Attending Dr: Ordering Physician: MARY LEDBETTER Date of Service: 01/09/20 Procedure(s): US OB <= 14 weeks fetus Accession Number(s): [id number] cc: MARY LEDBETTER Early obstetrical ultrasound INDICATION: , pelvic pain TECHNIQUE: Endovaginal and transabdominal Early intrauterine is noted. pole and yolk sac are seen. Estimated gestational age by crown-rump length is 8 weeks 6 days. cardiac activity was documented at 166 bpm. No obvious sac abnormalities are seen. There probably is an anterior 2 cm leiomyoma. Right ovary measures 2.4 cm and shows a 13 mm cyst. Left ovary measures 2.8 cm and shows no abnormalities.. No free fluid is seen. IMPRESSION: No significant abnormalities are seen. Early intrauterine . Signer Name: Jordan Ball MD Signed: 01/09/2020 11:45 PM Workstation Name: [id number] Transcribed By: GJ Dictated By: Jordan Ball MD Electronically Authenticated By: Jordan Ball MD Signed Date/Time: 01/09/20 2345 DD/ 2331 TD/TT: - Medical Decision Making This patient presents with abdominal pain which appears to be secondary to a UTI. Their evaluation has not identified a emergent etiology for the abdominal p ain. Specifically, given the very benign exam, normal laboratory studies, and lack of significant risk factors, I have a very low suspicion for appendicitis, ischemic bowel, bowel perforation, or any other life threatening disease. I have discussed with the patient the level of uncertainty with undifferentiated abdominal pain and clearly explained the need to follow-up as noted on the discharge instructions, or return to the Emergency Department immediately if the pain worsens, develops fever, persistent and uncontrollable vomiting, or for any new symptoms or concerns. I discussed with the patient that this presentation today for abdominal pain could represent a significant risk for an acute abdominal process. Although the tests in the ED were essentially normal, there is still a possibility of a process such as appendicitis, diverticulitis, discomfort of ,r, early bowel obstruction, mesenteric ischemia, kidney stone, or even kidney infection which could subsequently cause disability or . The patient understands that they must return within 24 hours for a recheck or see their physician within 24 hours for re-exam due to the possibility of significant surgical or medical process. Critical care attestation.: If time is entered above; I have spent that time in minutes in the direct care of this critically ill patient, excluding procedure time. ED Disposition Clinical Impression: UTI (urinary tract infection), , Nausea & vomiting Disposition: - TO HOME OR SELFCARE Is pt being admited?: No Does the pt Need Aspirin: No Condition: Stable Instructions: Morning Sickness (ED), (ED), Urinary Tract Infection in Women (ED), Dysuria (ED), Abdominal Pain (ED) Prescriptions: Doxylamine Succinate/Vit B6 [Otilia Laureano 10-10 mg Tablet] 1 each PO BID #20 tablet. Nitrofurantoin [place]/M-Cryst [Macrobid CAP] 100 mg PO Q12HR #14 capsule Referrals: [facility] [Provider Group] - 3-5 Days [facility], [Primary Care Provider] - 3-5 Days
--- NOTE | 2020-01-09 23:50 | Ultrasound Report ---
Early obstetrical ultrasound INDICATION: , pelvic pain TECHNIQUE: Endovaginal and transabdominal Early intrauterine is noted. pole and yolk sac are seen. Estimated gestational age by crown-rump length is 8 weeks 6 days. cardiac activity was documented at 166 bpm. No obvious sa c abnormalities are seen. There probably is an anterior 2 cm leiomyoma. Right ovary measures 2.4 cm and shows a 13 mm cyst. Left ovary measures 2.8 cm and shows no abnormali ties.. No free fluid is seen. IMPRESSION: No significant abnormalities are seen. Early intrauterine . Signer Name: Jordan Ball MD Signed: 01/09/2020 11:45 PM Workstation Name: [id number]
[2020-01-10 00:17] VITALS: BP 130/70
== END 2020-01-10 00:21 | disposition home or self-care (01) ==
LOC: ED 21:33
DX: O23.31 Infections of other parts of urinary tract in pregnancy, first trimester (principal); O26.891 Other specified pregnancy related conditions, first trimester; Z98.890 Other specified postprocedural states; Z79.899 Other long term (current) drug therapy; Z3A.09 9 weeks gestation of pregnancy
CPT/HCPCS: 36415; 76801; 76817; 80053; 81001; 83690; 84702; 85025; 87086; 96361; 96374; 96375; 99284; J1200; J2765; J7030

== ENCOUNTER 2020-02-24 08:13 | Emergency (ER) | payer MEDICAID ==
[2020-02-24] MEDS ORDERED: METOCLOPRAMIDE 10 MG/2 ML INJ IV STA (09:09)
[2020-02-24] MEDS ORDERED: diphenhydrAMINE 50 MG/ML VIAL IV STA (09:09)
[2020-02-24] MEDS ORDERED: SODIUM CHLORIDE 0.9% 1000 ML 1,000 ML IV ONE (09:09)
--- NOTE | 2020-02-24 09:13 | Emergency Department Report ---
ED Female HPI - General Chief complaint: Vaginal Bleeding Stated complaint: 15 WKS /SPOTTING Time Seen by Provider: 02/24/20 09:04 Source: patient Mode of arrival: Ambulatory Limitations: No Limitations - History of Present Illness Initial comments: 29-year-old female G3, P2 x2 who [employer] is at [facility] presents to the emergency department complaining of cramping and spotting this morning with lower abdominal/pelvic pain. Reports some nausea and vomiting as well reports no chest pain no palpitations no trauma no vaginal discharge no dysuria no hematuria. MD Complaint: vaginal bleeding Location: suprapubic Radiation: non-radiating Severity: mild Quality: cramping, dull Consistency: constant Improves with: none Worsens with: none Are you Now?: No Associated Symptoms: vaginal bleeding - Related Data Sexually active: Yes Previous Rx's Medication Instructions Recorded Last Taken Type Nitrofurantoin [place]/M-Cryst 100 mg PO Q12HR #14 capsule 07/19/16 Unknown Rx [Macrobid CAP] Acetaminophen/Codeine [Tylenol 1 tab PO Q6H PRN #12 tab 02/11/19 Unknown Rx /Codeine # 3 tab] Amoxicillin [Amoxicillin TAB] 875 mg PO BID #20 tablet 02/11/19 Unknown Rx Acetaminophen [Non-Aspirin Extra 500 mg PO Q6HR PRN #30 tablet 04/06/19 Unknown Rx Strength] Famotidine [Pepcid] 20 mg PO BID #30 tablet 04/06/19 Unknown Rx Metoclopramide [Reglan] 10 mg PO QID PRN #30 tablet 04/06/19 Unknown Rx Ibuprofen [Motrin 800 MG tab] 800 mg PO Q8HR PRN #30 tablet 09/22/19 Unknown Rx Prednisone [predniSONE 5 mg (6-Day 5 mg PO .TAPER #1 tab.ds.pk 09/22/19 Unknown Rx Pack, 21 Tabs)] Doxylamine Succinate/Vit B6 1 each PO BID #20 tablet. 01/10/20 Unknown Rx [Otilia Laureano 10-10 mg Tablet] Nitrofurantoin [place]/M-Cryst 100 mg PO Q12HR #14 capsule 01/10/20 Unknown Rx [Macrobid CAP] Allergies Allergy/AdvReac Type Severity Reaction Status Date / Time No Known Allergies Allergy Unverified 11/05/16 16:26 ED Review of Systems ROS: Stated complaint: 15 WKS /SPOTTING Other details as noted in HPI Comment: All other systems reviewed and negative ED Past Medical Hx - Past Medical History Previous Medical History?: No - Surgical History Past Surgical History?: Yes Additional Surgical History: C section x2 - Social History Smoking Status: Never Smoker Substance Use Type: None - Medications Home Medications: Home Medications Medication Instructions Recorded Confirmed Last Taken Type Nitrofurantoin [place]/M-Cryst 100 mg PO Q12HR #14 capsule 07/19/16 Unknown Rx [Macrobid CAP] Acetaminophen/Codeine [Tylenol 1 tab PO Q6H PRN #12 tab 02/11/19 Unknown Rx /Codeine # 3 tab] Amoxicillin [Amoxicillin TAB] 875 mg PO BID #20 tablet 02/11/19 Unknown Rx Acetaminophen [Non-Aspirin Extra 500 mg PO Q6HR PRN #30 tablet 04/06/19 Unknown Rx Strength] Famotidine [Pepcid] 20 mg PO BID #30 tablet 04/06/19 Unknown Rx Metoclopramide [Reglan] 10 mg PO QID PRN #30 tablet 04/06/19 Unknown Rx Ibuprofen [Motrin 800 MG tab] 800 mg PO Q8HR PRN #30 tablet 09/22/19 Unknown Rx Prednisone [predniSONE 5 mg (6-Day 5 mg PO .TAPER #1 tab.ds.pk 09/22/19 Unknown Rx Pack, 21 Tabs)] Doxylamine Succinate/Vit B6 1 each PO BID #20 tablet. 01/10/20 Unknown Rx [Diclegis Dr 10-10 mg Tablet] Nitrofurantoin [place]/M-Cryst 100 mg PO Q12HR #14 capsule 01/10/20 Unknown Rx [Macrobid CAP] ED Physical Exam - General Limitations: No Limitations General appearance: alert, in no apparent distress - Head Head exam: Present: atraumatic, normocephalic - Eye Eye exam: Present: normal appearance, PERRL, EOMI Pupils: Present: normal accommodation - ENT ENT exam: Present: normal exam, normal orophraynx, mucous membranes moist, TM's normal bilaterally - Neck Neck exam: Present: normal inspection, full ROM - Respiratory Respiratory exam: Present: normal lung sounds bilaterally. Absent: respiratory distress, wheezes, rales, chest wall tenderness, accessory muscle use, decreased breath sounds - Cardiovascular Cardiovascular Exam: Present: regular rate, normal rhythm, tachycardia (Old equals), normal heart sounds. Absent: bradycardia, systolic murmur, diastolic murmur, rubs, gallop - GI/Abdominal GI/Abdominal exam: Present: soft, normal bowel sounds. Absent: tenderness, guarding, rebound, hyperactive bowel sounds, hypoactive bowel sounds, organomegaly, mass, bruit - Extremities Exam Extremities exam: Present: normal inspection - Back Exam Back exam: Present: normal inspection. Absent: CVA tenderness (R), CVA t enderness (L) (Disease) - Neurological Exam Neurological exam: Present: alert, oriented X3, CN II-XII intact - Psychiatric Psychiatric exam: Present: normal affect, normal mood - Skin Skin exam: Present: warm, dry, intact, normal color. Absent: rash ED Course Vital Signs 02/24/20 02/24/20 02/24/20 08:17 08:19 11:55 Temperature 100.7 F H 98.1 F Pulse Rate 124 H 124 H 103 H Respiratory 20 20 12 Rate Blood Pressure 124/80 124/80 109/50 O2 Sat by Pulse 100 100 100 Oximetry ED Medical Decision Making - Lab Data Result diagrams: 02/24/20 Unknown 02/24/20 Unknown - Radiology Data Radiology results: report reviewed Print Report Referring Physician:DEB MCDANIELPatient Name:BALDEV RODRIGUEZ ONPatient ID:[id number] of :[id number]:FemaleAccession:[id number] Date:[id number] Status:Finalized Findings [facility] [address] [place] [address] Ultrasound Report Signed Patient: BALDEV GRAHAM MR#: [id number] : 1990 Acct:[id number] Age/Sex: 29 / F ADM Date: 02/24/20 Loc: ED Attending Dr: Ordering Physician: MARY LEDBETTER Date of Service: 02/24/20 Procedure(s): US OB >= 14 weeks Fetus Accession Number(s): [id number] cc: MARY LEDBETTER OB Ultrasound HISTORY: 15 weeks and vaginal bleeding. TECHNIQUE: Grayscale and color imaging performed. COMPARISON: OB ultrasound from 01/09/2020 FINDINGS: There is a single viable intrauterine gestation with breech presentation and heart rate of 155 bpm. Cervical length was 4.4 cm. HECTOR was not measured; however, the marine technician subjectively reports that the volume may be slightly low. Overall EGA by ultrasound is 15 weeks and 1 day with delivery date of 08/16/2020. This correlates closely with the clinical gestational age of 15 weeks and 0 days. IMPRESSION: Questionable slightly low HECTOR by the marine technician but no measurements were taken. Otherwise unremarkable exam with single viable intrauterine gestation as above. Signer Name: Jorge Wu MD Signed: 02/24/2020 10:01 AM Workstation Name: [id number] Transcribed By: JW Dictated By: Jorge Wu MD Electronically Authenticated By: Jorge Wu MD Signed Date/Time: 02/24/20 1001 [id number]/ [id number] Critical care attestation.: If time is entered above; I have spent that time in minutes in the direct care of this critically ill patient, excluding procedure time. ED Disposition Clinical Impression: Threatened in second trimester Disposition: DC-01 TO HOME OR SELFCARE Is pt being admited?: No Does the pt Need Aspirin: No Condition: Stable Instructions: Threatened Miscarriage (ED) Additional Instructions: Ultrasound the baby's heartbeat is 55 bpm please make sure to follow-up with your [employer] for reevaluation in the next 3 to 5 days Referrals: PRIMARY CAREMD [Referring] - 3-5 Days (Please follow-up with your [place] [employer])
--- NOTE | 2020-02-24 10:05 | Ultrasound Report ---
OB Ultrasound HISTORY: 15 weeks and vaginal bleeding. TECHNIQUE: Grayscale and color imaging performed. COMPARISON: OB ultrasound from 01/09/2020 FINDINGS: There is a single viable intrauterine gestation with breech presentation and heart rate of 155 bpm. Cervical length was 4.4 cm. HECTOR was not measured; however, the fine arts teacher subjectively repo rts that the volume may be slightly low. Overall EGA by ultrasound is 15 weeks and 1 day with deliver y date of 08/16/2020. This correlates closely with the clinical gestational age of 15 weeks and 0 days . IMPRESSION: Questionable slightly low HECTOR by the fine arts teacher but no measurements were taken. Otherwis e unremarkable exam with single viable intrauterine gestation as above. Signer Name: Jorge Wu MD Signed: 02/24/2020 10:01 AM Workstation Name: [id number]
[2020-02-24 10:28] LABS: Basophils % (Auto) 0.1 % (0.0-1.8); Eosinophils % (Auto) 0.1 % (0.0-4.3); Hematocrit 41.2 % (30.3-42.9); Hemoglobin 13.8 gm/dl (10.1-14.3); Lymphocytes # (Auto) 0.4 K/mm3 (1.2-5.4); Lymphocytes % (Auto) 6.2 % (13.4-35.0); Mean Corpuscular HGB Conc 34 % (30-34); Mean Corpuscular Volume 79 fl (79-97); Monocytes # (Auto) 0.4 K/mm3 (0.0-0.8); Monocytes % (Auto) 6.4 % (0.0-7.3); Platelet Count 179 K/mm3 (140-440); Red Blood Count 5.22 M/mm3 (3.65-5.03)
[2020-02-24 10:33] LABS: Bilirubin,Urine NEG (Negative); Blood,Urine NEG (Negative); Color,Urine Amber (Yellow); Mucus,Urine 3+ /HPF
[2020-02-24 10:43] LABS: INR 0.95 (0.87-1.13)
[2020-02-24 10:49] LABS: Alanine Aminotransferase 31 units/L (7-56); Albumin 3.8 g/dL (3.9-5); BUN/Creatinine Ratio 17; Blood Urea Nitrogen 10 mg/dL (7-17); Calcium 9.4 mg/dL (8.4-10.2); Hemolysis Index 63
[2020-02-24 11:57] VITALS: BP 109/50
== END 2020-02-24 13:43 | disposition home or self-care (01) ==
LOC: ED 08:13
DX: O20.0 Threatened abortion (principal); O21.8 Other vomiting complicating pregnancy; Z98.890 Other specified postprocedural states; Z79.1 Long term (current) use of non-steroidal anti-inflammatories (NSAID); Z79.899 Other long term (current) drug therapy; Z3A.15 15 weeks gestation of pregnancy
CPT/HCPCS: 36415; 76805; 80053; 81001; 84702; 85025; 85610; 86900; 86901; 96361; 96374; 96375; 99284; J1200; J2765; J7030